=== PATIENT | male | born 1975 | race African-American/Black ===

== ENCOUNTER 2021-07-27 19:10 | Emergency (ER) | payer MEDICAID ==
[~2021-07-27] VITALS: Ht 188 cm; Wt 47.6 kg
[2021-07-27 19:10] VITALS: BP 132/90
[2021-07-27 21:41] LABS: Basophils # (auto) 0 10 ^3/uL (0-0.2); Basophils % (auto) 0.4 % (0.0-2.0); Eosinophils # (auto) 0 10 ^3/uL (0-0.8); Eosinophils % (auto) 0.4 % (0.0-7.0); Hematocrit 38.9 % (41.0-53.0); Hemoglobin 13.3 g/dL (13.5-17.5); Lymphocytes # (auto) 1.2 10 ^3/uL (0.4-5.4); Lymphocytes % (auto) 13.6 % (10.0-50.0); Mean Corpuscular Hemoglobin 30.3 pg (28.0-32.0); Mean Corpuscular Hgb Conc. 34.2 g/dL (32.0-36.0); Mean Corpuscular Volume 88.5 fL (80.0-100.0); Monocytes # (auto) 0.5 10 ^3/uL (0-1.3); Monocytes % (auto) 5.3 % (0.0-12.0); Neutrophils # (auto) 6.8 10 ^3/uL (1.6-8.6); Neutrophils % (auto) 80.3 % (37.0-80.0); White Blood Cell 8.5 10^3/uL (4.4-10.8)
[2021-07-27 21:55] LABS: Albumin 3.9 g/dL (3.4-5.0); Calcium 8.9 mg/dL (8.5-10.1); Potassium 4.4 mmol/L (3.5-5.1)
[2021-07-27 21:58] LABS: BUN/Creatinine Ratio 11.2; Magnesium 1.7 mg/dL (1.6-2.6)
[2021-07-27 22:01] LABS: Bilirubin, Total 0.4 mg/dL (0.2-1.0); Total Protein 7.4 g/dL (6.4-8.2)
== END 2021-07-27 21:30 | disposition left against medical advice (07) ==
LOC: EDBD 19:10 → ER 19:10
DX: R07.89 Other chest pain (principal); Z88.8 Allergy status to other drugs, medicaments and biological substances
CPT/HCPCS: 36415; 71046; 80053; 80320; 83735; 83880; 84484; 85025; 93005